=== PATIENT | male | born 1965 | race Two or more races ===

== ENCOUNTER 2024-11-19 09:29 | Emergency (ER) | payer OTHER ==
[~2024-11-19] VITALS: Ht 165.1 cm; Wt 99.8 kg
[2024-11-19] MEDS ORDERED: COZAAR25 MG PO (10:36)
[2024-11-19] MEDS ORDERED: ADULT LOW DOSE81 M1 (10:36)
[2024-11-19] MEDS ORDERED: ROSUVASTATIN CA20 MG PO (10:36)
[2024-11-19] MEDS ORDERED: PROTONIX40 MG PO (10:36)
[2024-11-19] MEDS ORDERED: KETOROLAC TROMETHAMINE 30 MG VIAL IM STA (10:58)
[2024-11-19] MEDS ORDERED: KETOROLAC TROMETHAMINE 30 MG VIAL ONE (11:02)
== END 2024-11-19 11:52 | disposition home or self-care (01) ==
LOC: ER 09:29
DX: M25.561 Pain in right knee (principal)

== ENCOUNTER 2024-11-29 09:38 | Outpatient (CLI) | payer OTHER ==
[~2024-11-29 09:38] MED LIST: ADULT LOW DOSE81 M1; COZAAR25 MG PO; PROTONIX40 MG PO; ROSUVASTATIN CA20 MG PO
[2024-11-29 10:38] LABS: BASO % 0.6 % (0.1-1.2); EOS # 0.22 (0.04-0.54); EOS % 4.4 % (0.7-7.0); HEMOGLOBIN 15.7 g/dL (13.7-17.5); LYMPH # 0.96 (1.18-3.74); LYMPH % 19.2 % (19.3-53.1); MEAN CORPUSCULAR HEMOGLOBIN 30.5 pg (25.6-32.2); MONO # 0.48 (0.24-0.82); MONO % 9.6 % (4.7-12.5); NEUT # 3.29 (1.56-6.13); PLATELET COUNT 177 K/uL (163-369); RED BLOOD COUNT 5.15 M/uL (4.63-6.08); RED CELL DISTRIBUTION WIDTH 11.7 % (11.6-14.4)
[2024-11-29 10:43] LABS: PH,URINE 5.5 (5.0-8.0); URINE APPEARANCE Clear; URINE BILIRRUBIN Negative (NEGATIVE); URINE BLOOD Moderate; URINE COLOR Yellow; URINE GLUCOSE Negative (NEGATIVE); URINE KETONE Trace (NEGATIVE); URINE LEUKOCYTE Negative; URINE NITRATE Negative; URINE PROTEIN Negative (NEGATIVE)
[2024-11-29 10:44] LABS: URINE BACTERIA 18.3 uL (0.0-1933)
[2024-11-29 11:09] LABS: COL EPI 83 SECONDS (82-175)
[2024-11-29 11:13] LABS: PROTHROMBIN TIME 10.9 SECONDS (9.0-11.5)
[2024-11-29 11:16] LABS: URINE RBC 1.7 uL (0.0-20.8)
[2024-11-29 11:18] LABS: URINE EPITHELIAL CELLS 0.7 uL (0.0-38.8); URINE WBC 0.6 uL (0.0-23.2)
[2024-11-29 11:53] LABS: ALBUMIN 3.8 gm/dL (3.4-5.0); BILIRUBIN TOTAL 0.39 mg/dL (0.3-1.2); CALCIUM 9.1 mg/dL (8.5-10.1); CREATININE SERUM 0.95 mg/dL (0.70-1.30); GFR 81.71; GLOBULINA 2.9 G/DL (2.4-3.5); POTASSIUM 4.6 mEq/L (3.5-5.1); TOTAL PROTEIN 6.7 gm/dL (6.4-8.2)
== END 2024-11-29 09:43 | disposition home or self-care (01) ==
LOC: RAD 09:38
PROVIDERS: ATTEND Orthopaedic Surgery
DX: D64.9 Anemia, unspecified (principal); E88.89 Other specified metabolic disorders; D68.8 Other specified coagulation defects; N39.0 Urinary tract infection, site not specified; Z22.322 Carrier or suspected carrier of Methicillin resistant Staphylococcus aureus; Z76.89 Persons encountering health services in other specified circumstances; I10 Essential (primary) hypertension

== ENCOUNTER 2024-12-21 06:57 | Inpatient (IN) | payer OTHER ==
[~2024-12-21] VITALS: Ht 165.1 cm; Wt 99.8 kg
[2024-12-21] MEDS ORDERED: CEFAZOLIN SODIUM 1,000 MG VIAL IV ONE (11:00)
[2024-12-21] MEDS ORDERED: EPINEPHRINE HCL/PF 1 MG/ML AMPUL IJ ONE (11:15)
[2024-12-21] MEDS ORDERED: METHYLPREDNISOLONE ACETATE 80 MG/ML VIAL IU ONE (11:30)
[2024-12-21] MEDS ORDERED: TRAMADOL HCL 50 MG TABLET PO PRN (14:00)
[2024-12-21] MEDS ORDERED: MEPERIDINE HCL/PF 50 MG/ML VIAL IM PRN (14:00)
[2024-12-21] MEDS ORDERED: ONDANSETRON HCL 2 MG/ML VIAL IV PRN (14:00)
[2024-12-21] MEDS ORDERED: SODIUM CHLORIDE 0.45 % 1,000 ML IV SCH (14:00)
[2024-12-21] MEDS ORDERED: ONDANSETRON 4 MG TAB.RAPDIS PO PRN (14:00)
[2024-12-21] MEDS ORDERED: PROMETHAZINE HCL 50 MG/ML AMPUL IM PRN (14:00)
[2024-12-21] MEDS ORDERED: PANTOPRAZOLE SODIUM 40 MG TABLET.DR PO SCH (14:03)
[2024-12-21] MEDS ORDERED: VANCOMYCIN HCL 1,000 MG VIAL IV ONE (14:45)
[2024-12-21] MEDS ORDERED: CEFAZOLIN SODIUM 1,000 MG VIAL IV SCH (17:00)
[2024-12-21] MEDS ORDERED: ACETAMINOPHEN 325 MG TABLET PO SCH (17:00)
[2024-12-21] MEDS ORDERED: CELECOXIB 200 MG CAPSULE PO SCH (17:00)
[2024-12-21] MEDS ORDERED: MORPHINE SULFATE 4 MG/ML VIAL IV ONE (17:45)
[2024-12-21] MEDS ORDERED: KETOROLAC TROMETHAMINE 10 MG TABLET PO SCH (21:00)
[2024-12-22 06:43] LABS: BASO % 0.1 % (0.1-1.2); EOS # 0.00 (0.04-0.54); EOS % 0.0 % (0.7-7.0); LYMPH # 0.53 (1.18-3.74); LYMPH % 4.2 % (19.3-53.1); MEAN PLATELET VOLUME 10.20 fl (9.4-12.4); MONO # 0.37 (0.24-0.82); MONO % 2.9 % (4.7-12.5); NEUT # 11.64 (1.56-6.13); NEUT % 92.3 % (34.0-71.1); RED CELL DISTRIBUTION WIDTH 11.8 % (11.6-14.4)
[2024-12-22] MEDS ORDERED: RIVAROXABAN 10 MG TAB PO SCH (09:00)
[2024-12-22 10:16] VITALS: BP 151/92; O2SAT 95
[2024-12-22] MEDS ORDERED: MORPHINE SULFATE 4 MG/ML CARTRIDGE IV PRN (13:45)
[2024-12-22 18:39] VITALS: BP 152/85; O2SAT 97
[2024-12-23 01:00] VITALS: BP 135/84
[2024-12-23 06:23] LABS: BASO % 0.1 % (0.1-1.2); EOS # 0.02 (0.04-0.54); EOS % 0.2 % (0.7-7.0); LYMPH # 0.97 (1.18-3.74); LYMPH % 8.5 % (19.3-53.1); MEAN PLATELET VOLUME 10.20 fl (9.4-12.4); MONO # 0.87 (0.24-0.82); MONO % 7.6 % (4.7-12.5); NEUT # 9.50 (1.56-6.13); NEUT % 83.1 % (34.0-71.1); RED CELL DISTRIBUTION WIDTH 11.9 % (11.6-14.4)
[2024-12-23] MEDS ORDERED: SENNA/DOCUSATE SODIUM 1 TAB TABLET PO SCH (09:00)
[2024-12-23 09:18] VITALS: BP 128/81; O2SAT 96
== END 2024-12-23 16:11 | DRG 489 ==
LOC: CIR.AMB 06:57 → O/R 16:51 → MEDJ 16:51
PROVIDERS: ADMIT Orthopaedic Surgery; ATTEND Orthopaedic Surgery
PROC: 0SBC0ZZ Excision of Right Knee Joint, Open Approach (ICD-10-PCS; 2024-12-21)
PROC: 0SBC0ZZ Excision of Right Knee Joint, Open Approach (ICD-10-PCS; 2024-12-21)
PROC: 0MQN0ZZ Repair Right Knee Bursa and Ligament, Open Approach (ICD-10-PCS; principal; 2024-12-21 07:00)
DX: M93.261 Osteochondritis dissecans, right knee (principal); M65.861 Other synovitis and tenosynovitis, right lower leg; S83.231A Complex tear of medial meniscus, current injury, right knee, initial encounter; I10 Essential (primary) hypertension

== ENCOUNTER 2025-06-09 09:32 | Outpatient (CLI) | payer OTHER | END 2025-06-09 09:37 | disposition home or self-care (01) | LOC: LAB 09:32 | PROVIDERS: ATTEND Orthopaedic Surgery | DX: E55.9 Vitamin D deficiency, unspecified (principal); M85.9 Disorder of bone density and structure, unspecified; E56.1 Deficiency of vitamin K ==